=== PATIENT | female | born 1950 | race Caucasian/White ===

== ENCOUNTER 2024-02-18 12:24 | Inpatient (IN) | payer OTHER, MEDICARE ==
[~2024-02-18] VITALS: Ht 162.6 cm; Wt 65.4 kg
[2024-02-18 12:56] VITALS: PULSE 74; RESP 16; O2SAT 94
[2024-02-18 13:21] LABS: Urine Bacteria None Seen /hpf (None Seen)
[2024-02-18 13:41] LABS: Basophils # (auto) 0 10 ^3/uL (0-0.2); Basophils % (auto) 0.4 % (0.0-2.0); Eosinophils # (auto) 0.1 10 ^3/uL (0-0.8); Hematocrit 40.1 % (36.0-46.0); Hemoglobin 13.4 g/dL (12.2-16.2); Lymphocytes # (auto) 0.8 10 ^3/uL (0.4-5.4); Lymphocytes % (auto) 12.5 % (10.0-50.0); Mean Corpuscular Hemoglobin 30.7 pg (28.0-32.0); Mean Corpuscular Hgb Conc. 33.3 g/dL (32.0-36.0); Monocytes # (auto) 0.3 10 ^3/uL (0-1.3); Neutrophils # (auto) 5.4 10 ^3/uL (1.6-8.6); Neutrophils % (auto) 80.1 % (37.0-80.0); Nucleated Red Blood Cells % 0.1 %; Red Blood Cells 4.36 10^6/uL (4.0-5.20); Red Cell Distribution Width 14.4 % (11.8-14.3); White Blood Cell 6.7 10^3/uL (4.4-10.8)
[2024-02-18 13:50] LABS: Chloride 113 mmol/L (98-107); Potassium 3.9 mmol/L (3.5-5.1); Sodium 144 mmol/L (136-145)
[2024-02-18 13:51] LABS: Anion Gap 8 (5-15); Carbon Dioxide 23 mmol/L (20-30)
[2024-02-18 13:56] LABS: Urine Blood Negative /uL (Negative); Urine Clarity Turbid (Clear); Urine Color Colorless (Yellow); Urine Protein, UAD Negative (Negative); Urine Specific Gravity 1.018 (1.001-1.035); Urine Urobilinogen 3 mg/dL (Negative); Urine WBC 3 /hpf (0 - 5); Urine pH 7.5 (5.0-9.0)
[2024-02-18 13:57] LABS: BUN/Creatinine Ratio 28.6 (10.0-20.0); Blood Urea Nitrogen 22 mg/dL (9-23); Glucose 85 mg/dL (74-106)
[2024-02-18] MEDS ORDERED: DOCUSATE SOD 100 MG CAP PO PRN (16:30)
[2024-02-18] MEDS ORDERED: ONDANSETRON HCL 4 MG/2 ML VIAL IV PRN (16:30)
[2024-02-18] MEDS ORDERED: ACETAMINOPHEN 325 MG TAB PO PRN (16:30)
[2024-02-18] MEDS ORDERED: METOCLOPRAMIDE HCL 5MG/ml INJ 2ml VIAL IV PRN (16:30)
[2024-02-18] MEDS: LACTATED RINGER'S 1,000 ML IV ONE (16:30)
[2024-02-18] MEDS: FAMOTIDINE (10MG/ML) 2ML VL IV ONE (16:38)
[2024-02-18] MEDS: HYDROcodone-ACET 5/325MG TAB PO PRN (16:39)
[2024-02-18] MEDS: PANTOPRAZOLE 40 MG/10 ML VIAL INJ IV SCH (16:39)
[2024-02-18 18:09] VITALS: BP 138/87; PULSE 68; TEMP 97.8; O2SAT 89
[2024-02-18] MEDS ORDERED: PANT1INJ3 PO (18:33)
[2024-02-18] MEDS ORDERED: ASPI-543 PO (18:33)
[2024-02-18] MEDS ORDERED: TRAM50TA2 PO (18:33)
[2024-02-18] MEDS ORDERED: OXYB5TAB14 PO (18:33)
[2024-02-18] MEDS: SODIUM CHLOR 0.9% PF (SALINE LOCK) 10ML VIAL/SYR IV SCH (21:53)
[2024-02-18 22:00] VITALS: BP 132/80; PULSE 60; RESP 16; TEMP 97.6; O2SAT 96
[2024-02-19 01:00] VITALS: BP 132/79; PULSE 80; RESP 17; TEMP 98.5; O2SAT 95
[2024-02-19 05:00] VITALS: BP 130/84; PULSE 59; RESP 18; TEMP 98.4; O2SAT 95
[2024-02-19 09:00] VITALS: BP 149/79; PULSE 64; RESP 16; TEMP 98.5; O2SAT 97
[2024-02-19] MEDS: ENOXAPARIN SOD 40 MG/0.4 ML SYRINGE SC SCH (09:46)
[2024-02-19 13:00] VITALS: BP 134/94; PULSE 76; RESP 16; TEMP 98.9; O2SAT 95
[2024-02-19 17:00] VITALS: BP 145/80; PULSE 77; RESP 18; TEMP 98.5; O2SAT 93
[2024-02-19 21:22] VITALS: BP 132/96; PULSE 80; RESP 20; TEMP 98.7; O2SAT 94
[2024-02-20] VITALS (7 sets, daily range): BP systolic 124–145; BP diastolic 66–86; PULSE 61–80; RESP 12–20; TEMP 97.4–98.7; O2SAT 93–97
[2024-02-21] VITALS (7 sets, daily range): BP systolic 104–123; BP diastolic 65–84; PULSE 64–88; RESP 18–19; TEMP 98–98.8; O2SAT 91–95
[2024-02-21] MEDS: HYDROmorphone HCL 2 MG/ML VL/or syr IV PRN (02:58)
[2024-02-21 09:30] LABS: Basophils # (auto) 0 10 ^3/uL (0-0.2); Basophils % (auto) 0.5 % (0.0-2.0); Eosinophils # (auto) 0.1 10 ^3/uL (0-0.8); Eosinophils % (auto) 1.1 % (0.0-7.0); Hematocrit 42.6 % (36.0-46.0); Hemoglobin 14.2 g/dL (12.2-16.2); Lymphocytes # (auto) 0.7 10 ^3/uL (0.4-5.4); Lymphocytes % (auto) 9.4 % (10.0-50.0); Mean Corpuscular Hemoglobin 30.7 pg (28.0-32.0); Mean Corpuscular Hgb Conc. 33.3 g/dL (32.0-36.0); Mean Corpuscular Volume 91.9 fL (80.0-100.0); Monocytes # (auto) 0.4 10 ^3/uL (0-1.3); Monocytes % (auto) 5.8 % (0.0-12.0); Neutrophils # (auto) 5.8 10 ^3/uL (1.6-8.6); Neutrophils % (auto) 83.2 % (37.0-80.0); Nucleated Red Blood Cells % 0.1 %; Red Blood Cells 4.63 10^6/uL (4.0-5.20); Red Cell Distribution Width 14.1 % (11.8-14.3)
[2024-02-21 10:10] LABS: Anion Gap 11 (5-15); Carbon Dioxide 20 mmol/L (20-30); Chloride 106 mmol/L (98-107); Potassium 3.9 mmol/L (3.5-5.1)
[2024-02-21 10:12] LABS: Calcium 9.2 mg/dL (8.7-10.4); Sodium 137 mmol/L (136-145)
[2024-02-21 10:16] LABS: BUN/Creatinine Ratio 17.3 (10.0-20.0); Blood Urea Nitrogen 14 mg/dL (9-23); Glucose 66 mg/dL (74-106)
[2024-02-21] MEDS: GASTROGRAFIN 120 ML SOL ONE (11:11)
[2024-02-22] VITALS (7 sets, daily range): BP systolic 110–154; BP diastolic 72–105; PULSE 60–85; RESP 16–19; TEMP 36.8; O2SAT 95–99
== END 2024-02-22 18:33 | disposition hospice, home (50) | DRG 390 ==
LOC: EDBD 12:24 → ER 12:24 → OVERFLOW 16:20 → WEST WING 17:35 → EAST 18:18
PROVIDERS: ADMIT Internal Medicine; ATTEND Internal Medicine
DX: K56.41 Fecal impaction (principal); J44.9 Chronic obstructive pulmonary disease, unspecified; Z86.73 Personal history of transient ischemic attack (TIA), and cerebral infarction without residual deficits
CPT/HCPCS: 36415; 71045; 74176; 74250; 80048; 81001; 84484; 85025; 87081; 96361; 96374; 96375; G0378; J2470; J3490